=== PATIENT | male | born 1985 | race African-American/Black ===

== ENCOUNTER 2016-07-30 18:26 | Emergency (ER) | payer OTHER ==
[~2016-07-30] VITALS: Ht 182.9 cm; Wt 83.9 kg
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
[2016-07-30 18:51] VITALS: BP 121/77
[2016-07-30] MEDS ORDERED: Ketorolac 60mg Inj IM ONE (19:15)
[2016-07-30] MEDS ORDERED: NAPROXEN500 M2 ORAL (19:37)
[2016-07-30 20:08] VITALS: BP 121/77
--- NOTE | 2016-07-31 11:42 | Diagnostic Imaging Report ---
Indication: PAIN Technique: 3 views of the right ankle Comparison: none Findings: Posterior sideplates and screws are seen reducing old healed distal tibial and fibular fractures. There is considerable posttraumatic deformity. There may be lucencies involving the medial malleolus, and a component of nonunion cannot be completely ruled out. No definite evidence of nonunion of the tibial fracture. There are secondary degenerative changes of the ankle joint. Excludable is seen within the talus. The bones of the hindfoot appear osteoporotic Impression: Posttraumatic and postsurgical changes, as described Nonunion or acute injury of the medial malleolus cannot be completely ruled out. 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
== END 2016-07-30 20:08 | disposition home or self-care (01) ==
LOC: EDBD 18:26 → EMR 20:00
DX: S82.891A Other fracture of right lower leg, initial encounter for closed fracture (principal); V03.90XA Pedestrian on foot injured in collision with car, pick-up truck or van, unspecified whether traffic or nontraffic accident, initial encounter; Y92.410 Unspecified street and highway as the place of occurrence of the external cause; Y99.8 Other external cause status
CPT/HCPCS: 96372; 99283